=== PATIENT | female | born 1965 | race Caucasian/White ===

== ENCOUNTER 2025-01-18 07:56 | Outpatient (CLI) | payer OTHER ==
[2025-01-18 09:03] LABS: Hematocrit 39.9 % (34.9-44.5)
== END 2025-01-18 07:57 | disposition home or self-care (01) ==
LOC: CSHLAB 07:56
PROVIDERS: ATTEND Otolaryngology Plastic Surgery within the Head & Neck
DX: Z01.818 Encounter for other preprocedural examination (principal); H69.93 Unspecified Eustachian tube disorder, bilateral; E21.3 Hyperparathyroidism, unspecified; D35.1 Benign neoplasm of parathyroid gland; H61.21 Impacted cerumen, right ear
CPT/HCPCS: 85014; 93005; 93010

== ENCOUNTER 2025-01-23 06:23 | Day surgery (SDC) | payer OTHER ==
[2025-01-18 08:24] VITALS: BMI 25.4
[2025-01-23] MEDS ORDERED: Rocuronium Bromide 10 MG/ML (10ML VIAL) ONE (07:39)
[2025-01-23] MEDS ORDERED: PROPOFOL 20 ML ONE ×2 (07:39→10:13)
[2025-01-23] MEDS ORDERED: Ondansetron PF 4 MG/2 ML Vial ONE (07:39)
[2025-01-23] MEDS ORDERED: SUGAMMADEX SODIUM 200 MG/2 ML VIAL ONE (07:39)
[2025-01-23] MEDS ORDERED: Lidocaine 1% PF 5 ML VIAL ONE (07:39)
[2025-01-23] MEDS ORDERED: Lidocaine 1% w/Epinephrine 1:200K 30 ML VIAL ONE (08:31)
[2025-01-23] MEDS ORDERED: Ciprofloxacin 0.2% Otic (0.25ML CONTAINER) ONE (09:44)
[2025-01-23] MEDS ORDERED: oFLOXacin 0.3% Opth 5 ML BOT ONE (10:46)
[2025-01-23] MEDS ORDERED: HYDROcodone/Acetaminophen 5/325 mg Tablet ONE (11:57)
== END 2025-01-23 12:45 | disposition home or self-care (01) ==
LOC: CSHSDC 06:23
PROVIDERS: ATTEND Otolaryngology Plastic Surgery within the Head & Neck
PROC: 0GTP0ZZ Resection of Left Inferior Parathyroid Gland, Open Approach (ICD-10-PCS; principal; 2025-01-23)
PROC: 3E1B78Z Irrigation of Ear using Irrigating Substance, Via Natural or Artificial Opening (ICD-10-PCS; principal; 2025-01-23)
PROC: 09PE7SZ Removal of Hearing Device from Left Inner Ear, Via Natural or Artificial Opening (ICD-10-PCS; principal; 2025-01-23)
DX: E21.0 Primary hyperparathyroidism (principal); E04.1 Nontoxic single thyroid nodule; H61.23 Impacted cerumen, bilateral; H90.72 Mixed conductive and sensorineural hearing loss, unilateral, left ear, with unrestricted hearing on the contralateral side; H71.92 Unspecified cholesteatoma, left ear; H69.83 Other specified disorders of Eustachian tube, bilateral; Z85.828 Personal history of other malignant neoplasm of skin; Z87.891 Personal history of nicotine dependence; Z91.041 Radiographic dye allergy status
CPT/HCPCS: 36415; 83970; 88305; 88331; J1100; J2405; J2704; J3010